=== PATIENT | female | born 1965 | race Caucasian/White ===

== ENCOUNTER 2022-07-08 07:01 | Day surgery (SDC) | payer OTHER ==
[~2022-07-08] VITALS: Ht 167.6 cm; Wt 103.0 kg
[~2022-07-08 07:01] MED LIST: COZAAR100 MG PO; GLIPIZ PO; GLUCOPHAGE XR500 MG; METFORMIN HCL1000 M1 PO; PROVERA2.5 MG PO; SYNTHROID100 MCG PO; ZETIA10 MG PO; [UNRECOGNIZED DRUG - OTHER] PO
== END 2022-07-08 17:00 | disposition home or self-care (01) ==
LOC: CIR.AMB 07:01
PROVIDERS: ATTEND Surgery
DX: D24.2 Benign neoplasm of left breast (principal); D24.1 Benign neoplasm of right breast; N60.92 Unspecified benign mammary dysplasia of left breast; N60.22 Fibroadenosis of left breast; N60.21 Fibroadenosis of right breast; N60.81 Other benign mammary dysplasias of right breast; Z20.822 Contact with and (suspected) exposure to COVID-19; I10 Essential (primary) hypertension; E78.5 Hyperlipidemia, unspecified; Z91.013 Allergy to seafood; E11.9 Type 2 diabetes mellitus without complications; E03.9 Hypothyroidism, unspecified; Z79.84 Long term (current) use of oral hypoglycemic drugs
CPT/HCPCS: 19301; 19281; 19282; L8699